=== PATIENT | female | born 1950 | race Caucasian/White ===

== ENCOUNTER 2018-06-21 13:48 | Observation (INO) | payer MEDICARE, OTHER ==
[~2018-06-21] VITALS: Ht 160 cm; Wt 96.6 kg
--- OUTSIDE RECORDS SUMMARY | 2018-06-21 13:50 | XMS REPORT | Clinical Summary ---
Author Author [facility] Address Unknown Phone Unavailable Care Team Providers Care Animal Care Worker Name Role Phone Swapna Alvarez MD PCP Allergies Not on File Medications Not on file Active Problems Not on file Encounters Care Team Description Date Type Specialty Tiffanie PhysicianMD Screening breast examination 08/06/2017 Hospital Radiology Encounter Tiffanie PhysicianMD Screening for osteoporosis; Menopause 08/06/2017 Hospital Radiology Encounter Swapna Alvarez MD Screening for osteoporosis (Primary Dx); Screening breast examination; Menopause 07/31/2017 Transcribe Access Orders after 06/20/2017 Social History Date Tobacco Use Types Packs/Day Years Used Never Assessed Sex Assigned at Date Recorded Not on file Industry Job Start Date Occupation Not on file Not on file Not on file Travel End Travel History Travel Start No recent travel history available. Last Filed Vital Signs Not on file Plan of Treatment Health Maintenance Due Date Last Done Comments COLON CANCER SCREENING 1998 SHINGRIX VACCINE (1 of 2) 1998 ZOSTER VACCINE 2008 PNEUMOCOCCAL 2013 POLYSACCHARIDE VACCINE AGE 65 AND OVER PNEUMOCOCCAL-13 2013 INFLUENZA VACCINE 03/04/2018 BREAST CANCER SCREENING 08/06/2019 08/06/2017, 05/22/2015 Procedures Comments Procedure Name Priority Date/Time Associated Diagnosis BONE DENSITY Routine 08/06/2017 Screening for 11:35 AM [employer] osteoporosis Menopause MAMMO BREAST SCREEN Routine 08/06/2017 Screening breast TOMOSYNTHESIS BILATERAL 11:20 AM [employer] examination after 06/20/2017 Results * Bone Density (08/06/2017 11:35 AM [employer]) Narrative Performed At EXAMINATION:BONE DENSITY [facility] CLINICAL HISTORY:Z13.820 Encounter for screening for osteoporosis, Z78.0 Asymptomatic menopausal state, OSTEOPOROSIS SCREENINGPOSTMENOPAUSAL.Osteoporosis screening. COMPARISON:05/22/2015 The results of this study expressed as bone mineral density (BMD) were as follows: AP spine (L1- L4) BMD: 1.299g/cm2 T-Score: 1.0 Percent Change: -6.0 Dual Femur (Total Mean): BMD: 0.940g/cm2 T-Score: -0.5 Percent Change: -7.5 Impression: Normal bone mineral density. [facility]-[id number] A copy of this scans including a report detailing these results will follow. Note: The world health organization (WHO) has classified the patient's T-score as follows: At or above (-1) as normal Between (-1) to (-2.5) as low (osteopenia) Below (-2.5) as abnormally low (osteoporosis, increased fracture risk) Dual femur FRAX: Risk factors: None. 10 year probability of fracture: 1.Major osteoporotic: 8.1 % 2.Hip: 0.8 % 3.Based on dual femur leftneck BMD Procedure Note [facility], Radiology Results Incoming - 08/11/2017 11:03 AM [employer] EXAMINATION: BONE DENSITY CLINICAL HISTORY: Z13.820 Encounter for screening for osteoporosis, Z78.0 Asymptomatic menopausal state, OSTEOPOROSIS SCREENING POSTMENOPAUSAL. Osteoporosis screening. COMPARISON: 05/22/2015 The results of this study expressed as bone mineral density (BMD) were as follows: AP spine (L1- L4) BMD: 1.299 g/cm2 T-Score: 1.0 Percent Change: -6.0 Dual Femur (Total Mean): BMD: 0.940 g/cm2 T-Score: -0.5 Percent Change: -7.5 Impression: Normal bone mineral density. [facility]-[id number] A copy of this scans including a report detailing these results will follow. Note: The world health organization (WHO) has classified the patient's T-score as follows: At or above (-1) as normal Between (-1) to (-2.5) as low (osteopenia) Below (-2.5) as abnormally low (osteoporosis, increased fracture risk) Dual femur FRAX: Risk factors: None. 10 year probability of fracture: 1. Major osteoporotic: 8.1 % 2. Hip: 0.8 % 3. Based on dual femur left neck BMD Performing Organization Address [facility]ode Phone Number [facility] [address] [place] [address] * Mammo Breast Screen Tomosynthesis Bilateral (08/06/2017 11:20 AM [employer]) Narrative Performed At PROCEDURE: MAMMO BREAST SCREEN TOMOSYNTHESIS BILATERAL [place]AK[place]ER Computer-assisted detection was utilized inthe interpretation of this exam. COMPARISON: 05/22/2015. TECHNIQUE: Bilateral digital screening mammogram was performed and interpreted using computer-assisted detection. HISTORY: Asymptomatic routine screening. History of left surgical excisional biopsy. Family History: Mother and sister with breast cancer history. FINDINGS: BreastComposition: There are scattered areas of fibroglandular density ( category B). A scar marker is placed over the left upper outer breast. A small circumscribed round masses present in the left outer breast at anterior depth with associated benign-appearing calcification, stable and unchanged since prior mammograms. There are occasional scattered calcifications. No suspicious mass , architectural distortion or suspicious microcalcifications are present. There has been no significant interval change since prior mammograms. IMPRESSION: No mammographic evidence of malignancy. Birads Category 2. Benign. RECOMMENDATIONS:If the clinical breast examination is unchanged and normal , annual screening mammography is recommended per ACS and ACR guidelines. PATIENT INFORMATION HAS BEEN ENTERED INTO A REMINDER SYSTEM WITH TARGET DUE DATE FOR THE NEXT MAMMOGRAM. NOTE: This facility is a designated ACR [facility] ( [facility]) , meeting standards of accreditation in all modalities of breast imaging. This facility is accredited by The [place] [employer] for Mammography. A negative x-ray report should not delay biopsy if a dominant or clinically suspicious mass is present. Not all cancers are identified by x-ray. [id number] Performing Organization Address City/[facility]/Zipcode Phone Number [facility] [address] [place] [address] after 06/20/2017 Insurance Payer Benefit Subscriber ID Type Phone Address Plan / Group MEDICARE MEDICARE xxxxxxxxxx Medicare [place] PART A AND B [employer] xxxxxx-xx Commercial [place] Advance Directives Patient has advance care planning documents on file. For more information, zachary echeverria contact: Дмитрий [address]ady[address] [place] [address]
--- OUTSIDE RECORDS SUMMARY | 2018-06-21 13:51 | XMS REPORT | Summary of Care ---
Author Author [facility] Organization [facility] Address Unknown Phone Unavailable Encounter HQ Malcolm_mikki(FIN) [id number] Date(s): 11/25/17 - 11/25/17 [facility] [address], [address] [place] [phone] Discharge Disposition: Home or Self Care Attending Physician: Chai Gómez MD Referring Physician: Swapna Alvarez MD Vital Signs Most recent to 1 oldest [Reference Range]: Height 160.02 cm (11/25/17 10:36 AM) Temperature Oral 97.6 DegF [96.4-99.1 DegF] (11/25/17 10:36 AM) Blood Pressure 143/82 mmHg [90-140/60-90 mmHg] *HI* (11/25/17 10:36 AM) Peripheral Pulse 59 bpm Rate [60-100 bpm] *LOW* (11/25/17 10:36 AM) Weight 97.33 kg (11/25/17 10:36 AM) Body Mass Index 38.01 m2 (11/25/17 10:36 AM) Problem List Condition Effective Dates Status Health Status Informant GERD Resolved (gastroesophageal reflux disease)(Confirmed) Murmur(Confirmed) Resolved Morbid Active obesity(Confirmed) Cervicalgia(Confirme Resolved d) Allergies, Adverse Reactions, Alerts Substance Reaction Severity Status NKDA Active Medications gabapentin 100 mg oral capsule 100 mg=1 cap, PO, TID, # 90 cap, 2 Refill(s), Pharmacy: [id number] Start Date: 11/25/17 Status: Ordered Results No data available for this section Immunizations No data available for this section Procedures Procedure Date Related Diagnosis Body Site Status Cholecystectomy Completed Knee replacement Completed Tonsillectomy Completed Social History Social History Type Response Smoking Status Never smoker; Exposure to Tobacco Smoke None; Cigarette Smoking Last 365 Days No; Reg Smoking Cessation Counseling No entered on: 11/25/17 Assessment and Plan No data available for this section
--- OUTSIDE RECORDS SUMMARY | 2018-06-21 13:51 | XMS REPORT | Summary of Care ---
Author Author [facility] Organization [facility] Address Unknown Phone Unavailable Encounter HQ Encntr_alias(FIN) [id number] Date(s): 01/06/18 - 01/07/18 [facility] [address], [address] [place] [address] [phone] Vital Signs No data available for this section Problem List Condition Effective Dates Status Health Status Informant Herniated disc, Active cervical(Confirmed) GERD Active (gastroesophageal reflux disease)(Confirmed) Murmur(Confirmed) Resolved Morbid Active obesity(Confirmed) Cervicalgia(Confirme Active d) Allergies, Adverse Reactions, Alerts Substance Reaction Severity Status NKDA Active Medications No data available for this section Results No data available for this section Immunizations No data available for this section Procedures Procedure Date Related Diagnosis Body Site Status Cholecystectomy Completed Knee replacement Completed Operation Completed Tonsillectomy Completed Social History Social History Type Response Smoking Status Never smoker; Exposure to Tobacco Smoke None; Cigarette Smoking Last 365 Days No; Reg Smoking Cessation Counseling No entered on: 01/08/18 Assessment and Plan No data available for this section
--- OUTSIDE RECORDS SUMMARY | 2018-06-21 13:51 | XMS REPORT | Summary of Care ---
Author Author [facility] Organization [facility] Address Unknown Phone Unavailable Encounter HQ Encntr_alias(FIN) [id number] Date(s): 01/05/18 - 01/06/18 [facility] [address], [address] [place] [phone] Vital Signs No data available for this [...]
--- OUTSIDE RECORDS SUMMARY | 2018-06-21 13:51 | XMS REPORT | Summary of Care ---
Author Author [facility] Organization [facility] Address Unknown Phone Unavailable Encounter HQ Encntr_alimarianela(FIN) [id number] Date(s): 12/01/17 - 12/01/17 [facility] [address], [address] [place] [phone] Discharge Disposition: Home or Self Care Attending Physician: Marilee Vieira MD Referring Physician: Swapna Alvarez MD Vital Signs No data available for this section Problem List Condition Effective Dates Status Health Status Informant GERD Resolved (gastroesophageal reflux disease)(Confirmed) Murmur(Confirmed) Resolved Morbid Active obesity(Confirmed) Cervicalgia(Confirme Resolved d) Allergies, Adverse Reactions, Alerts Substance Reaction Severity Status NKDA Active Medications No Known Medications Results No data available for this section Immunizations No data available for this section Procedures Procedure Date Related Diagnosis Body Site Status Cholecystectomy Completed Knee replacement Completed Operation Completed Tonsillectomy Completed Social History Social History Type Response Smoking Status Never smoker; Exposure to Tobacco Smoke None; Cigarette Smoking Last 365 Days No; Reg Smoking Cessation Counseling No entered on: 12/09/17 Assessment and Plan No data available for this section
--- OUTSIDE RECORDS SUMMARY | 2018-06-21 13:51 | XMS REPORT | Summary of Care ---
Author Author [facility] Organization [facility] Address Unknown Phone Unavailable Encounter HQ Encntr_alias(FIN) [id number] Date(s): 01/15/18 - 01/16/18 [facility] [address], [address] [place] [phone] Vital Signs No data available for this [...]
--- OUTSIDE RECORDS SUMMARY | 2018-06-21 13:51 | XMS REPORT | Summary of Care ---
Author Author [facility] Organization [facility] Address Unknown Phone Unavailable Encounter HQ Encntr_alimarianela(FIN) [id number] Date(s): 12/01/17 - 12/01/17 [facility] [address], [address] [phone] Discharge Disposition: Home or Self Care Attending [...]
--- OUTSIDE RECORDS SUMMARY | 2018-06-21 13:51 | XMS REPORT | Summary of Care ---
Author Author [facility] Organization [facility] [place] Address Unknown Phone Unavailable Encounter HQ Encntr_alias(FIN) [id number] Date(s): 06/23/17 - 06/23/17 [facility] [place] [address] [place] [address]- [phone] Discharge Disposition: Home or Self Care Attending Physician: Swapna Alvarez MD Vital Signs No data available for this section Problem List No data available for this section Allergies, Adverse Reactions, Alerts No data available for this section Medications No data available for this section Results No data available for this section Immunizations No data available for this section Procedures No data available for this section Social History No data available for this section Assessment and Plan No data available for this section
--- OUTSIDE RECORDS SUMMARY | 2018-06-21 13:51 | XMS REPORT | Summary of Care ---
Author Author [facility] Address Unknown Phone Unavailable Encounter HQ Encntr_alimarianela(FIN) [id number] Date(s): 07/02/17 - 07/31/17 [facility] Discharge Disposition: Home or Self Care Attending Physician: Swapna Alvarez MD Vital Signs No data available for this section Problem List Condition Effective Dates Status Health Status Informant GERD Resolved (gastroesophageal reflux disease)(Confirmed) Murmur(Confirmed) Resolved Cervicalgia(Confirme Resolved d) Allergies, Adverse Reactions, Alerts Substance Reaction Severity Status NKDA Active Medications No data available for this section Results No data available for this section Immunizations No data available for this section Procedures No data available for this section Social History Social History Type Response Smoking Status Never smoker; Exposure to Tobacco Smoke None; Cigarette Smoking Last 365 Days No; Reg Smoking Cessation Counseling No Assessment and Plan No data available for this section
--- OUTSIDE RECORDS SUMMARY | 2018-06-21 13:51 | XMS REPORT | Summary of Care ---
Author Author [facility] Organization [facility] Address Unknown Phone Unavailable Encounter HQ Encntr_alimarianela(FIN) [id number] Date(s): 12/11/17 - 12/11/17 [facility] [address], [address] [phone] Discharge Disposition: Home or Self Care Attending [...]
--- OUTSIDE RECORDS SUMMARY | 2018-06-21 13:51 | XMS REPORT | Summary of Care ---
Author Author [facility] [place] Organization [facility] [place] Address Unknown Phone Unavailable Encounter HQ Rodyr_mikki(FIN) [id number] Date(s): 09/29/17 - 09/29/17 [facility] [place] [address] [place] [address] [phone] Encounter Diagnosis Cervicalgia (Final) - 10/02/17 Spinal stenosis, cervical region (Final) - Fall (on)(from) sidewalk curb, initial encounter (Final) - Discharge Disposition: Home or Self Care Attending [...] Reg Smoking Cessation Counseling No entered on: 12/30/17 Assessment and Plan No data available for this section
--- OUTSIDE RECORDS SUMMARY | 2018-06-21 13:51 | XMS REPORT | Summary of Care ---
Author Author [facility] Organization [facility] Address Unknown Phone Unavailable Encounter DHEERAJ Shell(SIMI) [id number] Date(s): 07/23/17 - 07/23/17 [facility] [address] [place] [address]- Discharge Disposition: Home or Self Care Attending Physician: Alex Salinas MD Referring Physician: Alex Salinas MD Vital Signs 1 2 3 Most recent to oldest [Reference Range]: 162.56 cm (07/22/17 12:02 PM) Height 138/72 mmHg (07/23/17 1:45 PM) 138/76 mmHg (07/23/17 1:30 PM) 143/74 mmHg *HI* (07/23/17 1:16 PM) Blood Pressure [90-140/60-90 mmHg] 20 BRMIN (07/23/17 1:45 PM) 17 BRMIN (07/23/17 1:30 PM) 17 BRMIN (07/23/17 1:16 PM) Respiratory Rate [14-20 BRMIN] 96.818 kg (07/22/17 12:02 PM) Weight 36.64 m2 (07/22/17 12:02 PM) Body Mass Index Problem List Condition Effective Dates Status Health Status Informant GERD Resolved (gastroesophageal reflux disease)(Confirmed) Murmur(Confirmed) Resolved Cervicalgia(Confirme Resolved d) Allergies, Adverse Reactions, Alerts Substance Reaction Severity Status NKDA Active Medications NexIUM PO, Daily, 0 Refill(s) Start Date: 07/22/17 Status: Ordered Sodium Chloride 0.9% IV 1000 mL 1,000 mL, Rate: 25 ml/hr, Infuse over: 40 hr, Route: IV, Dosing Weight 96.818 kg , Total Volume: 1,000, Start date: 07/23/17 11:32:00 LAND EXAMINER, Duration: 30 day, Stop date: 08/22/17 11:31:00 LAND EXAMINER, 2.12, m2 Start Date: 07/23/17 Stop Date: 07/23/17 Status: Discontinued VESIcare 5 mg oral tablet 5 mg=1 tab, PO, Daily, 0 Refill(s) Start Date: 07/22/17 Status: Ordered Results No data available for [...]
--- OUTSIDE RECORDS SUMMARY | 2018-06-21 13:51 | XMS REPORT | Summary of Care ---
Author Author [facility] Organization [facility] Address Unknown Phone Unavailable Encounter HQ Encntr_alias(FIN) [id number] Date(s): 12/08/17 - 12/09/17 [facility] [address] [facility], [address] [phone] Vital Signs No data available for this [...]
--- OUTSIDE RECORDS SUMMARY | 2018-06-21 13:51 | XMS REPORT | Continuity of Care Document ---
Author Author [facility] Address Unknown Phone Unavailable Problems Problem Status Onset Date Classification Date Reported Comments Source UNK Active 01/02/2018 [facility] Cervicalgia 10/03/2017 01/05/2018 [facility] CERVICALGIA Active 06/24/2017 [facility] M54.2 - CERVICALGIA Active 06/20/2017 [facility] GERD (<span ID="[id number]">Confirmed</span>) Active Problem 02/12/2018 [facility] Murmur Resolved Problem 02/12/2018 [facility] Morbid obesity Active Problem 02/12/2018 [facility], [facility] Cervicalgia Active Problem 02/12/2018 [facility] GERD (<span ID="[id number]">Confirmed</span>) Active Problem 01/25/2018 [facility] Murmur Resolved Problem 01/25/2018 [facility] Cervicalgia Active Problem 01/25/2018 [facility] Herniated disc, cervical Active [facility] Spinal stenosis, cervical region 01/05/2018 [facility] Fall (from) sidewalk curb, initial encounter 01/05/2018 [facility] GERD (<span ID="[id number]">Confirmed</span>) Resolved Problem 01/05/2018 [facility], [facility] Murmur Resolved Problem 01/05/2018 [facility], [facility] Cervicalgia Resolved Problem 01/05/2018 [facility], [facility] GASTRO-ESOPHAGEAL REFLUX DISEASE WITHOUT Active [facility] CERVICALGIA Active [facility] MUSCLE WEAKNESS (GENERALIZED) Active [facility] STIFFNESS OF UNSPECIFIED JOINT, NOT ELSE Active [facility] RADICULOPATHY, CERVICAL REGION Active [facility] SPONDYLS W/O MYELPATH OR RADICULOPATHY, Active [facility] Medications Medication Details Route Status Patient Instructions Ordering Provider Order Date Source gabapentin 100 MG Oral Capsule 100 mg=1 cap, PO, TID, # 90 cap, 2 Refill(s), Pharmacy: [place] [id number] Active 02/09/2018 [facility] Diclofenac Sodium 0.01 MG/MG Topical Gel [Voltaren] 4 gm=1 appl, TOP, BID, PRN Apply to affected area, # 100 gm, 1 Refill(s), Pharmacy: [place] [id number] Active 02/09/2018 [facility] meloxicam 7.5 mg oral tablet 7.5 mg=1 tab, PO, Daily, # 30 tab, 2 Refill(s), Pharmacy: [place] [id number] Active 02/09/2018 [facility] Calcium Chloride 0.0014 MEQ/ML / Potassium Chloride 0.004 MEQ/ML / Sodium Chloride 0.103 MEQ/ML / Sodium Lactate 0.028 MEQ/ML Injectable Solution 1,000 mL, Rate: 25 ml/hr, Infuse over: 40 hr, Route: IV, Dosing Weight 95.455 kg, Total Volume: 1,000, Start date: 01/22/18 13:37:00 CDT, Duration: 30 day, Stop date: 02/21/18 13:36:00 CDT, 2.08, m2 Inactive 01/22/2018 [facility] gabapentin 100 MG Oral Capsule 100 mg=1 cap, PO, TID, # 90 cap, 2 Refill(s), Pharmacy: [place] [id number] Active 11/25/2017 [facility] Sodium Chloride 0.9% IV 1000 mL 1,000 mL, Rate: 25 ml/hr, Infuse over: 40 hr, Route: IV, Dosing Weight 96.818 kg, Total Volume: 1,000, Start date: 07/23/17 11:32:00 FLOOR SURFACER, Duration: 30 day, Stop date: 08/22/17 11:31:00 FLOOR SURFACER, 2.12, m2 Inactive 07/23/2017 [facility] solifenacin succinate 5 MG Oral Tablet [VESICARE] 5 mg=1 tab, PO, Daily, 0 Refill(s) Active 07/22/2017 [facility] Nexium PO, Daily, 0 Refill(s) Active 07/22/2017 [facility] Allergies, Adverse Reactions, Alerts Substance Category Reaction Severity Reaction type Status Date Reported Comments Source Immunizations Immunization Date Given Site Status Last Updated Comments Source Results Order Name Results Value Reference Range Date Interpretation Comments Source Hand 3 views Bilateral DX Hand 3 views Bilateral DX EXAM: XR BILATERAL HAND 2 VIEWS DATE: 03/06/2018 10:14 AM CDT INDICATION: bilateral hand pain COMPARISON: Right hand radiographs 03/11/2008 at 1459 hours TECHNIQUE: PA and lateral radiographs of the bilateral hands. FINDINGS: Left hand: There is an impaction of the distal radial ulnar joint. Mild radiocarpal narrowing is also noted. Degenerative changes of the 1st CMC joint is seen. There is also mild narrowing of the 1st MCP and interphalangeal joints of the 2nd through 5th finger. No acute fracture or malalignment is identified. Right hand: An impaction of the distal radial ulnar joint is seen. There is an irregularity of the radiocarpal joints as well as the lunate. Degenerative changes are seen at the triscaphe joint. Mild joint space narrowing is noted at the 1st MCP. No acute fracture or malalignment is identified. IMPRESSION: Osteoarthrosis with no signs of inflammatory arthropathy. Findings likely represent osteoarthritis. 03/06/2018 - - This report was dictated by a Validation Specialist/Fellow. I have personally reviewed the images as well as the Resident's interpretation and agree with the findings. Read by: Lisa Krueger MD Resident: Lisa Krueger MD Dictated Date/time: 03/06/18 10:45 Electronically Signed by: Wilbert Cedillo MD 03/06/18 11:38 FINAL REPORT [facility] cervical wo contrast CT Spine cervical wo contrast CT Spine cervical wo contrast CT 12/02/2017 10:40 AM CDT CLINICAL INDICATION: - M47.812 Spondylosis without myelopathy or radiculopathy, cervical region; TECHNIQUE: Contiguous axial CT images of the cervical spine. Intravenous contrast: None. DLP 393 mGy-cm. This exam was performed according to our department dose optimization protocol, which includes automated exposure control, adjustment of the mA and/or kV according to patient size and/or use of iterative reconstruction technique. COMPARISON: 09/29/2017 MRI FINDINGS: Vertebrae: The lateral cervical spine alignment is intact. Anterior osteophytes with calcification of the annuli are seen at the C4-C5, C5- C6, C6-C7 levels. C6 level 2.5 mm ossification of the posterior longitudinal ligament is seen with mild central canal stenosis. C6-C7 moderate disc narrowing is present with approximately 2.8 mm disc bulge with mild to moderate central canal stenosis. Severe left and mild right foraminal stenosis due to foraminal osteophytes. Other: None. IMPRESSION: 1. C6 level OPLL with mild central canal stenosis. 2. C6-C7 moderate degenerative changes with [id number] central canal stenosis and severe left foraminal stenosis. 12/02/2017 - - Read by: Cody House MD Dictated Date/time: 12/02/17 17:43 Electronically Signed by: Cody House MD 12/02/17 17:54 FINAL REPORT [facility] Brain wo contrast CT Brain wo contrast CT Brain wo contrast CT , 09/29/2017 11:08 AM FLOOR SURFACER. CLINICAL INDICATION: 67 years Female - fall, head injury x 1 month ago Comparison: None TECHNIQUE: Noncontrast images of the brain are obtained from the skull base to the vertex. Axial, sagittal, and coronal images are interpreted. DLP: 1163 mGy-cm -- AEC, mA/kV adjustment by patient size, and/or iterative reconstruction technique were used, per departmental dose-optimization program. FINDINGS: Streak artifact may limit evaluation the posterior fossa and skull base. BRAIN PARENCHYMA: The brain volume is age appropriate. The lux-white distinction is maintained. There is no evidence of cerebral edema, mass effect, or acute hemorrhage. CEREBELLOPONTINE REGIONS AND SKULL BASE: No evidence of fracture or significant scalp hematoma. The cerebellopontine angles appear unremarkable. No skull base abnormality is seen. VENTRICLES/SULCI/CISTERNS: The ventricles are normal in size and configuration. The basal cisterns are patent. ORBITS, VISUALIZED PARANASAL SINUSES AND MASTOIDS: Paranasal sinuses are clear. The mastoid air cells are clear. No orbital pathology is seen. IMPRESSION: No CT evidence of acute intracranial abnormality identified. 09/29/2017 - - Read by: Scar Diaz MD Dictated Date/time: 09/29/17 11:31 Electronically Signed by: Scar Diaz MD 09/29/17 11:33 FINAL REPORT [facility] Spine cervical wo contrast MRI Spine cervical wo contrast MRI Spine cervical wo contrast MRI 09/29/2017 10:25 AM FLOOR SURFACER CLINICAL: M54.2 Cervicalgia - M54.2 Cervicalgia TECHNIQUE: Multiplanar multisequence imaging of the cervical spine was performed without administration of intravenous gadolinium. COMPARISON: 06/23/2017 radiograph exam. FINDINGS: Multilevel disc desiccation is seen. C1-C2: No spinal stenosis or neural foraminal stenosis. C2-C3: There is preservation of the disc height, with no bulging, herniation, spinal stenosis, or neural foraminal stenosis. C3-C4: No central canal or foraminal stenosis. C4-C5: There is preservation of the disc height, with no bulging, herniation, spinal stenosis, or neural foraminal stenosis. C5-C6: Approximately 3 mm thick left ligamentum flavum redundancy. 1.5 mm disc bulge is present with mild central canal stenosis and mild cord indentation. Mild bilateral foraminal stenosis due to right foraminal osteophytes and mild left facet arthrosis. C6-C7: Significant disc narrowing is present. Approximately 3.5 mm posterior disc osteophyte complex with mild central canal stenosis and cord indentation. Severe left foraminal stenosis and moderate right foraminal stenosis due to foraminal osteophytes and uncovertebral joint arthrosis. C7-T1: There is preservation of the disc height, with no bulging, herniation, spinal stenosis, or neural foraminal stenosis. The cervical cord signal is unremarkable without MRI evidence of myelomalacia. IMPRESSION: 1. C5-C6 and C6-C7 mild central canal stenosis and cord indentation as above. Normal cervical cord signal is maintained. 2. C5-C6 mild bilateral foraminal stenosis. C6-C7 severe left foraminal stenosis and moderate right foraminal stenosis. 09/29/2017 - - Read by: Cody House MD Dictated Date/time: 09/29/17 12:10 Electronically Signed by: Cody House MD 09/29/17 13:21 FINAL REPORT [facility] [place] Spine cervical 2 or 3 view DX Spine cervical 2 or 3 view DX Exam: Cervical spine x-ray, 3 views Reason for Exam: - cervicalgia Comparison Exam: None Discussion: On lateral view, the cervical spine is seen from the C1 vertebral body level down through the C7/T1 junction. Vertebral body heights are maintained. No spondylolisthesis. Anterior bridging osteophyte formation seen within the mid and lower cervical spine. No suspicious osteoblastic or osteolytic lesions. Prevertebral soft tissue is within normal limits. Lateral masses of C1 and dens of C2 appear intact. Please note that a cervical spine x-ray cannot rule out ligamentous injuries or spinal cord abnormalities. Visualized portions of the lung apices are unremarkable. Impression: 1. Vertebral body heights are maintained. No spondylolisthesis. Anterior bridging osteophyte formation seen within the mid and lower cervical spine. 06/23/2017 - - Read by: Juan Jose Madrid MD Dictated Date/time: 06/23/17 15:58 Electronically Signed by: Juan Jose Madrid MD 06/23/17 16:01 FINAL REPORT [facility] Vital Signs Vital Sign Value Date Comments Source Systolic (mm Hg) 140 01/22/2018 [facility] Diastolic (mm Hg) 67 01/22/2018 [facility] Respitory Rate 17 01/22/2018 [facility] Systolic (mm Hg) 139 01/22/2018 [facility] Diastolic (mm Hg) 69 01/22/2018 [facility] Respitory Rate 22 01/22/2018 [facility] Systolic (mm Hg) 140 01/22/2018 [facility] Diastolic (mm Hg) 91 01/22/2018 [facility] Respitory Rate 16 01/22/2018 [facility] Weight 95.455 01/21/2018 [facility] BMI Calculated 38.49 01/21/2018 [facility] Height 157.48 cm 01/21/2018 [facility] Systolic (mm Hg) 127 12/30/2017 [facility] Diastolic (mm Hg) 79 12/30/2017 [facility] Heart Rate 66 12/30/2017 [facility] Weight 97.443 12/30/2017 [facility] BMI Calculated 38.05 12/30/2017 [facility] Height 160.02 cm 12/30/2017 [facility] Systolic (mm Hg) 143 11/25/2017 [facility] Diastolic (mm Hg) 82 11/25/2017 [facility] Temperature Oral (F) 97.6 F 11/25/2017 [facility] Heart Rate 59 11/25/2017 [facility] Height 160.02 cm 11/25/2017 [facility] BMI Calculated 38.01 11/25/2017 [facility] Weight 97.33 11/25/2017 [facility] Systolic (mm Hg) 138 07/23/2017 [facility] Diastolic (mm Hg) 72 07/23/2017 [facility] Respitory Rate 20 07/23/2017 [facility] Systolic (mm Hg) 138 07/23/2017 [facility] Diastolic (mm Hg) 76 07/23/2017 [facility] Respitory Rate 17 07/23/2017 [facility] Systolic (mm Hg) 143 07/23/2017 [facility] Diastolic (mm Hg) 74 07/23/2017 [facility] Respitory Rate 17 07/23/2017 [facility] BMI Calculated 36.64 07/22/2017 [facility] Weight 96.818 07/22/2017 [facility] Height 162.56 cm 07/22/2017 [facility] Encounters Location Location Details Encounter Type Encounter Number Reason For Visit Attending Provider ADM Date DC Date Status Source [facility] [id number] Swapna Sattar 06/23/2017 06/24/2017 [facility] OP Therapy Patients [id number] Swapna Sattar 07/02/2017 08/01/2017 [facility] Bedded Outpatient [id number] Alex Salinas 07/23/2017 07/23/2017 [facility] Outpatient Imaging - [place] Outpt Diag Services [id number] Swapna Sattar 09/29/2017 09/30/2017 [facility] [id number] Carlos Narvaez 10/28/2017 10/28/2017 [facility] Neurosurgery [facility] Phone Message [id number] 10/30/2017 11/01/2017 [facility] Outpatient [id number] CHAI HATHAWAYH 11/25/2017 Active [facility] Neurosurgery [facility] Outpatient [id number] Chai Gómez 11/25/2017 11/26/2017 [facility] [id number] MARILEE VIEIRA 12/01/2017 [facility] Outpatient [id number] Swapna Sattar 12/01/2017 12/02/2017 [facility] Outpatient Imaging - [facility] Out[facility] Diag Services [id number] Chai Hathawayh 12/02/2017 12/03/2017 [facility] Phone Message [id number] 12/08/2017 12/10/2017 [facility] Out[facility] [id number] MARILEE VIEIRA 12/11/2017 [facility] [id number] Marilee Vieira 12/11/2017 12/12/2017 [facility] Phone Message [id number] 12/22/2017 12/24/2017 [facility] Outpatient [id number] [facility] 12[facility]30/2017 [facility] [id number] [facility] 12/30/2017 12/31/2017 [facility] Phone Message [id number] 01/05/2018 01/07/2018 [facility] Phone Message [id number] 01/06/2018 01/08/2018 [facility] Outpatient [id number] [facility] 01/14/2018 [facility] Phone Message [id number] 01/15/2018 [facility]17/[facility] [id number] Marilee Vieira 01/22/2018 01/22/2018 [facility] Outpatient [id number] MARILEE VIEIRA 01/22/2018 [facility] Phone Message [id number] 01/23/2018 01/25/2018 [facility] Outpatient [id number] MARILEE VIEIRA 02/09/2018 Active [facility] Outpatient [id number] Marilee Vieira 02/09/2018 02/10/2018 [facility] Outpatient [id number] MARILEE VIEIRA 05/11/2018 Active [facility] Procedures Procedure Code Date Perfomer Comments Source Cholecystectomy 05444967 [facility] Knee replacement 43811707 [facility] Operation 870869277 [facility] Tonsillectomy 291278841 [facility] Cholecystectomy 90536627 [facility] Knee replacement 13553689 [facility] Operation [id number] [facility] Tonsillectomy [id number] [facility] Cholecystectomy 44032678 [facility] Knee replacement 21665430 [facility] Operation [id number] [facility] Tonsillectomy [id number] [facility]
--- OUTSIDE RECORDS SUMMARY | 2018-06-21 13:51 | XMS REPORT | Summary of Care ---
Author Author [facility] Organization [facility] Address Unknown Phone Unavailable Encounter HQ Encntr_mikki(FIN) [id number] Date(s): 12/30/17 - 12/30/17 [facility] Neuro[facility] [address] [facility], [address] [phone] Discharge Disposition: Home or Self Care Attending Physician: Chai Gómez MD Referring Physician: Swapna Alvarez MD Vital Signs Most recent to 1 oldest [Reference Range]: Height 160.02 cm (12/30/17 11:34 AM) Blood Pressure 127/79 mmHg [90-140/60-90 mmHg] (12/30/17 11:34 AM) Peripheral Pulse 66 bpm Rate [60-100 bpm] (12/30/17 11:34 AM) Weight 97.443 kg (12/30/17 11:34 AM) Body Mass Index 38.05 m2 (12/30/17 11:34 AM) Problem List Condition Effective Dates Status [...]
--- OUTSIDE RECORDS SUMMARY | 2018-06-21 13:51 | XMS REPORT | Summary of Care ---
Author Author [facility] Organization [facility] Address Unknown Phone Unavailable Encounter HQ Encntr_alias(FIN) [id number] Date(s): 12/22/17 - 12/23/17 [facility] Neurosurgery [facility] [address] [facility], [address] [phone] Vital Signs No data available for this [...]
--- OUTSIDE RECORDS SUMMARY | 2018-06-21 13:51 | XMS REPORT | Summary of Care ---
Author Author [facility] Organization [facility] [place] Address Unknown Phone Unavailable Encounter HQ Macrientr_mikki(FIN) [id number] Date(s): 12/02/17 - 12/02/17 [facility] [place] [address] [place], [place] [address] [phone] Discharge Disposition: Home or Self Care Attending Physician: Chai Gómez MD Vital Signs No data available for [...]
--- OUTSIDE RECORDS SUMMARY | 2018-06-21 13:51 | XMS REPORT | Summary of Care ---
Author Author [facility] Neurosurgery [facility] Organization [facility] Neurosurgery [facility] Address Unknown Phone Unavailable Encounter HQ Encntr_alimarianela(FIN) [id number] Date(s): 12/11/17 - 12/11/17 [facility] Neurosurgery [facility] [address] [facility], [address] [phone] Discharge Disposition: Home or Self Care Attending [...]
--- OUTSIDE RECORDS SUMMARY | 2018-06-21 13:52 | XMS REPORT | Summary of Care ---
Author Author [facility] Organization [facility] Address Unknown Phone Unavailable Encounter HQ Encntr_alias(FIN) [id number] Date(s): 01/23/18 - 01/24/18 [facility] [address] [facility], [address] [phone] Vital Signs No data available for this [...] Completed Social History Social History Type Response Substance Abuse Use: None. Alcohol Never Smoking Status Never smoker; Exposure to Tobacco Smoke None; Cigarette Smoking Last 365 Days No; Reg Smoking Cessation Counseling No entered on: 01/22/18 Assessment and Plan No data available for this section
--- OUTSIDE RECORDS SUMMARY | 2018-06-21 13:52 | XMS REPORT | Summary of Care ---
Author Author [facility] Organization [facility] Address Unknown Phone Unavailable Encounter HQ Sumaya(FIN) [id number] Date(s): 02/09/18 - 02/09/18 [facility] Neurosurgery [facility] [address] [facility], [address] [place], [place] [address] [phone] Discharge Disposition: Home or Self Care Attending [...] TID, # 90 cap, 2 Refill(s), Pharmacy: [facility] Start Date: 02/09/18 Status: Ordered meloxicam 7.5 mg oral tablet 7.5 mg=1 tab, PO, Daily, # 30 tab, 2 Refill(s), Pharmacy: [facility] Start Date: 02/09/18 Status: Ordered Voltaren Topical 1% topical gel 4 gm=1 appl, TOP, BID, PRN Apply to affected area, # 100 gm, 1 Refill(s), Pharma cy: [facility] [place] [id number] Start Date: 02/09/18 Status: Ordered Results No data available for [...]
--- OUTSIDE RECORDS SUMMARY | 2018-06-21 13:52 | XMS REPORT | Summary of Care ---
Author Author [facility] Neurosurgery [facility] Organization [facility] Neuro[facility] Address Unknown Phone Unavailable Encounter HQ Encntr_alias(FIN) [id number] Date(s): 10/30/17 - 10/31/17 [facility] Neurosurgery [facility] [address] [facility], [address] [phone] Vital Signs No data available for this [...]
--- OUTSIDE RECORDS SUMMARY | 2018-06-21 13:52 | XMS REPORT | Summary of Care ---
Author Author [facility] Neurosurgery [facility] Organization [facility] Neurosurgery [facility] Address Unknown Phone Unavailable Encounter HQ Marcientr_mikki(FIN) [id number] Date(s): 10/28/17 - 10/28/17 [facility] Neurosurgery [facility] [address] [facility], [address] [phone] Attending Physician: Chai Gómez MD Referring Physician: Carlos Narvaez MD Vital Signs No data available for [...]
[2018-06-21] MEDS ORDERED: ASPIRIN 81 MG CHEW TAB PO NR (14:15)
[2018-06-21] MEDS ORDERED: FOLIC ACID1 MG PO (14:24)
[2018-06-21] MEDS ORDERED: VITAMIN D250000 UNIT PO (14:24)
[2018-06-21] MEDS ORDERED: PREDNISONE5 MG PO (14:24)
[2018-06-21] MEDS ORDERED: METHOTREXATE2.5 MG PO (14:24)
[2018-06-21 14:27] LABS: BASOPHILS % 0.3 % (0.0-1.0); EOSINOPHILS # (AUTO) 0.1 (0.0-0.4); HEMATOCRIT 35.3 % (34.2-44.1); HEMOGLOBIN 11.6 g/dL (12.0-16.0); LYMPHOCYTES # (AUTO) 0.7 (1.0-3.2); LYMPHOCYTES % 9.9 % (18.0-39.1); MEAN CORPUSCULAR HEMOGLOBIN 30.9 pg (28-32); MEAN CORPUSCULAR HGB CONC 32.9 g/dL (31-35); MEAN CORPUSCULAR VOLUME 93.9 fL (81-99); MONOCYTES # (AUTO) 0.3 (0.2-0.8); MONOCYTES % 4.6 % (4.4-11.3); NEUTROPHILS # (AUTO) 5.8 (2.1-6.9); NEUTROPHILS % 82.8 % (38.7-80.0); PLATELET COUNT 179 x10e3/uL (140-360); RED BLOOD COUNT 3.76 x10e6/uL (3.6-5.1); RED CELL DISTRIBUTION WIDTH 14.9 % (11.7-14.4)
[2018-06-21 14:47] LABS: INR 0.94; PROTHROMBIN TIME 13.4 seconds (11.9-14.5)
[2018-06-21 14:48] LABS: PARTIAL THROMBOPLASTIN TIME 27.8 seconds (23.8-35.5)
--- NOTE | 2018-06-21 14:55 | Diagnostic Imaging Report ---
EXAMINATION: CHEST SINGLE (PORTABLE) COMPARISON: None INDICATION: Chest pain, now subsided DISCUSSION: Frontal view of the chest obtained at 1439 hours. HEART AND MEDIASTINUM: The cardiomediastinal silhouette is unremarkable. LINES: None. LUNGS: The lungs are well inflated and clear. No pneumonia or pulmonary edema. PLEURA: No pleural effusion or pneumothorax. BONES AND SOFT TISSUES: Mild degenerative changes of the shoulders.. The soft tissues are normal. IMPRESSION: No acute cardiopulmonary disease. Signed by: Dr. Dixon Gonzalez MD on 06/21/2018 2:52 PM
[2018-06-21 14:57] LABS: ALANINE AMINOTRANSFERASE 13 IU/L (0-55); ALBUMIN 3.7 g/dL (3.5-5.0); ALBUMIN/GLOBULIN RATIO 1.1 (0.8-2.0); ALKALINE PHOSPHATASE 46 IU/L (40-150); ANION GAP 14.9 mmol/L (8-16); BLOOD UREA NITROGEN 23 mg/dL (7-26); BUN/CREATININE RATIO 22 (6-25); CALCIUM 8.3 mg/dL (8.4-10.2); CARBON DIOXIDE 24 mmol/L (22-29); CHLORIDE 108 mmol/L (98-107); CREATINE KINASE 37 IU/L (29-168); CREATININE, SERUM 1.04 mg/dL (0.57-1.11); EST GLOMERULAR FILTRATION RATE 52 ML/MIN (60-); GLUCOSE 95 mg/dL (74-118); MAGNESIUM 2.1 MG/DL (1.3-2.1); POTASSIUM 3.9 mmol/L (3.5-5.1); SODIUM 143 mmol/L (136-145)
[2018-06-21 15:12] LABS: BILIRUBIN,URINE NEGATIVE (NEGATIVE); KETONES,URINE TRACE (NEGATIVE); LEUKOCYTE ESTERASE ,URINE 1+ (NEGATIVE); NITRITE,URINE NEGATIVE (NEGATIVE); PROTEIN,URINE DIPSTICK NEGATIVE (NEGATIVE); URINE UROBILINOGEN 1 mg/dL (0.2 - 1)
[2018-06-21 15:19] LABS: BACTERIA,URINE MANY /HPF; CLARITY,URINE HAZY (CLEAR); COLOR,URINE YELLOW (YELLOW); EPITHELIAL CELLS,URINE MODERATE /LPF; MUCUS,URINE MODERATE (RARE)
[2018-06-21] MEDS ORDERED: PANTOPRAZOLE 40 MG 10ML VIAL IV NR (15:30)
[2018-06-21] MEDS ORDERED: ONDANSETRON HCL INJ 2 MG/ML VIAL IV PRN (15:30)
--- OUTSIDE RECORDS SUMMARY | 2018-06-21 15:47 | XMS REPORT | Clinical Summary ---
Author Author [facility] Organization [facility] Address Unknown Phone Unavailable Care Team Providers Care Director Of Enterprise Strategy Name Role Phone Swapna Alvarez MD PCP [...] DENSITY Routine 08/06/2017 Screening for 11:35 AM WATER MANAGER osteoporosis Menopause MAMMO BREAST SCREEN Routine 08/06/2017 Screening breast TOMOSYNTHESIS BILATERAL 11:20 AM WATER MANAGER examination after 06/20/2017 Results * Bone Density (08/06/2017 11:35 AM WATER MANAGER) Narrative Performed At EXAMINATION:BONE DENSITY [facility] CLINICAL HISTORY:Z13.820 Encounter for screening for osteoporosis, Z78.0 Asymptomatic menopausal state, OSTEOPOROSIS SCREENINGPOSTMENOPAUSAL.Osteoporosis screening. COMPARISON:05/22/2015 The results of this study expressed as bone mineral density (BMD) were as follows: AP spine (L1- L4) BMD: 1.299g/cm2 T-Score: 1.0 Percent Change: -6.0 Dual Femur (Total Mean): BMD: 0.940g/cm2 T-Score: -0.5 Percent Change: -7.5 Impression: Normal bone mineral density. [facility]-[id number] A copy of this scans including a [...] on dual femur leftneck BMD Procedure Note [facility], Radiology Results Incoming - 08/11/2017 11:03 AM WATER MANAGER EXAMINATION: BONE DENSITY CLINICAL HISTORY: Z13.820 Encounter [...] Change: -7.5 Impression: Normal bone mineral density. [facility]-[id number] A copy of this scans including a [...] femur left neck BMD Performing Organization Address [facility] Phone Number [facility] [address] [place] [address] * Mammo Breast Screen Tomosynthesis Bilateral (08/06/2017 11:20 AM WATER MANAGER) Narrative Performed At PROCEDURE: MAMMO BREAST SCREEN [...] imaging. This facility is accredited by [employer] for Mammography. A negative x-ray report should not delay biopsy if a dominant or clinically suspicious mass is present. Not all cancers are identified by x-ray. [id number] Performing Organization Address City/[facility]/Zipcode Phone Number [facility] [address] [place] [address] after 06/20/2017 Insurance Payer Benefit Subscriber ID Type Phone Address Plan / Group MEDICARE MEDICARE xxxxxxxxxx Medicare [place], [place] PART A AND B [employer] x[employer]x-xx Commercial [place] Advance Directives Patient has advance care planning documents on file. For more information, zachary echeverria contact: [address]митрий [address] [place] [address]
--- OUTSIDE RECORDS SUMMARY | 2018-06-21 15:48 | XMS REPORT ---
Author [facility] Address Unknown Phone Unavailable Care Team Providers Care Agricultural Research Director Name Role Phone Janet MURRIETA Unavailable Unavailable Problems This patient has no known problems. Allergies, Adverse Reactions, Alerts This patient has no known allergies or adverse reactions. Medications This patient has no known medications. Results Test Description Test Time Test Comments Text Results Atomic Results Result Comments CHEST SINGLE (PORTABLE) 2018-06-21 14:51:00 [place] [address] Patient Name: SOPHIA CAN MR #: [id number] : 1950 Age/Sex: 68/F Req #: [id number] Adm Physician: Ordered by: JODI MURRIETA MD Report #: [id number] Location: ER Room/Bed: Procedure: [id number] DX/CHEST SINGLE (PORTABLE) Exam Date: 06/21/18 Exam Time: 1432 REPORT STATUS: Signed EXAMINATION: CHEST SINGLE (PORTABLE) COMPAR JOSE MIGUEL: None INDICATION: Chest pain, now subsided DISCUSSION: Frontal view of the chest obtained at 1439 hours. HEART AND MEDIASTINUM: The cardiomediastinal silhouette is unremarkable. LINES: None. LUNGS: The lungs are well inflated and clear. No pneumonia or pulmonary edema. PLEURA: No pleural effusion or pneumothorax. BONES AND SOFT TISSUES: Mild degenerative changes of the shoulders.. The soft tissues are normal. IMPRESSION: No acute cardiopulmonary disease. Signed by: Dr. Zac Gonzalez MD on 06/21/2018 2:52 PM Dictated By: ZAC GONZALEZ MD 51 Transcribed By: DANYELL on 06/21/181451 COPY TO: JODI MURRIETA MD
[2018-06-21 17:14] VITALS: BP 179/76
[2018-06-21 17:16] VITALS: BP 179/76
[2018-06-21 17:21] VITALS: BP 179/76
[2018-06-21 19:47] VITALS: BP 139/63
[2018-06-21 19:52] VITALS: BP 139/63
[2018-06-22] VITALS (7 sets, daily range): BP systolic 126–159; BP diastolic 58–72
[2018-06-22 00:03] LABS: CREATINE KINASE 34 IU/L (29-168)
[2018-06-22 05:53] LABS: BASOPHILS % 0.6 % (0.0-1.0); EOSINOPHILS # (AUTO) 0.2 (0.0-0.4); EOSINOPHILS % 3.6 % (0.0-6.0); HEMATOCRIT 32.3 % (34.2-44.1); HEMOGLOBIN 10.7 g/dL (12.0-16.0); LYMPHOCYTES # (AUTO) 1.4 (1.0-3.2); MEAN CORPUSCULAR HGB CONC 33.1 g/dL (31-35); MEAN CORPUSCULAR VOLUME 93.6 fL (81-99); MONOCYTES # (AUTO) 0.4 (0.2-0.8); NEUTROPHILS # (AUTO) 3.1 (2.1-6.9); NEUTROPHILS % 61.6 % (38.7-80.0); PLATELET COUNT 173 x10e3/uL (140-360); RED BLOOD COUNT 3.45 x10e6/uL (3.6-5.1); RED CELL DISTRIBUTION WIDTH 14.6 % (11.7-14.4)
[2018-06-22 06:22] LABS: CREATINE KINASE 172 IU/L (29-168)
[2018-06-22 06:35] LABS: ANION GAP 14.5 mmol/L (8-16); BLOOD UREA NITROGEN 19 mg/dL (7-26); BUN/CREATININE RATIO 25 (6-25); CALCIUM 8.9 mg/dL (8.4-10.2); CARBON DIOXIDE 22 mmol/L (22-29); CHLORIDE 109 mmol/L (98-107); CHOL/HDL RATIO 2.7 (3.0-3.6); CHOLESTEROL 145 MD/DL (0-199); CREATININE, SERUM 0.75 mg/dL (0.57-1.11); EST GLOMERULAR FILTRATION RATE > 60 ML/MIN (60-); GLUCOSE 86 mg/dL (74-118); HDL CHOLESTEROL 53 MG/DL (40-60); LDL CHOLESTEROL 81 MG/DL (60-130); POTASSIUM 3.5 mmol/L (3.5-5.1); SODIUM 142 mmol/L (136-145); TRIGLYCERIDES 54 MG/DL (0-149)
[2018-06-22] MEDS ORDERED: HYDRALAZINE HCL 20 MG/ML VIAL IV PRN (07:00)
[2018-06-22] MEDS ORDERED: ACETAMINOPHEN 325 MG TAB PO PRN (07:00)
[2018-06-22] MEDS: CEFTRIAXONE SOD 1 GM VIAL IV SCH ×2 (08:50→18:20)
[2018-06-22] MEDS ORDERED: POTASSIUM CHLORIDE 20 MEQ TAB CR PO STA (08:51)
[2018-06-22] MEDS ORDERED: AMLODIPINE BESYLATE 10 MG TAB PO SCH (09:00)
[2018-06-22] MEDS ORDERED: ASPIRIN 81 MG ENTERIC COATED PO SCH (09:00)
[2018-06-22] MEDS ORDERED: PANTOPRAZOLE 40 MG 10ML VIAL IV SCH (09:00)
[2018-06-22] MEDS ORDERED: FOLIC ACID 1 MG TAB PO SCH (09:00)
[2018-06-22] MEDS ORDERED: PREDNISONE 5 MG TAB PO SCH (09:00)
[2018-06-22] MEDS ORDERED: POTASSIUM CHLORIDE 20 MEQ TAB CR PO ONE (09:44)
[2018-06-22] MEDS ORDERED: AMLODIPINE BESYLATE 10 MG TAB ONE (09:45)
--- NOTE | 2018-06-22 12:23 | Consultation ---
DATE OF CONSULTATION: June 21, 2018 CARDIOLOGY CONSULTATION REQUESTING PHYSICIAN: Dr. Quinn REASON FOR CONSULTATION: Chest pain. HPI: This is a pleasant, 68-year-old female that presented with chest pain. She stated yesterday she started having right-sided chest pain on a scale of 5 out of 10 that radiated to her neck and back. She said it felt like a sudden, sharp pain that then went away. She decided to come to the emergency room for evaluation. She denied any palpitations, any dizziness, any shortness of breath or diaphoresis. Troponin times 3 was negative, but CK was elevated. EKG showed normal sinus rhythm with no ST abnormalities. PAST MEDICAL HISTORY: Obesity, osteoarthritis, GERD. PAST SURGICAL HISTORY: Back surgery, cholecystectomy and knee surgery. FAMILY HISTORY: Positive for cancer. SOCIAL HISTORY: No smoking. No drinking. She lives at home with family. MEDICATIONS: See med list. ALLERGIES: SHE IS NOT ALLERGIC TO ANY MEDICATION. REVIEW OF SYSTEMS: Negative, except those mentioned above. PHYSICAL EXAMINATION VITAL SIGNS: Temperature 97, heart rate 57. Blood pressure 135/64, respirations 16, oxygen saturation 95% on room air. GENERAL: She is awake, alert and oriented times 3. HEENT: Mucous membranes are moist. NECK: Supple. LUNGS: Bilaterally clear to auscultation. CARDIOVASCULAR: S1 and S2 present. ABDOMEN: Soft. NEUROLOGIC: Intact. EXTREMITIES: No edema. LABS: Sodium 142, potassium 3.5, chloride 109, CO2 22. BUN 19, creatinine 0.78. Glucose 86. White blood cells 5.0, hemoglobin 10.7, hematocrit 32.3, platelets 173. PT 13.4, PTT 27.8, INR 0.94, CK 172. IMPRESSION 1. Chest pain. 2. Gastroesophageal reflux disease. 3. Osteoarthritis. 4. Obesity. 5. Sinus bradycardia. ASSESSMENT AND PLAN 1. She is pending echo to assess the LV and the valve function. 2. Troponin times 3 was negative. 3. She needs an outpatient cardiac stress test. 4. Heart rate is 57. She is asymptomatic. 5. Potassium 3.5. K replaced. 6. Further cardiac workup pending clinical course. Thank you for this consultation. Dictated by Beba Harry NP. Job#: [id number]
[2018-06-22] MEDS ORDERED: NORVASC10 MG PO (18:47)
[2018-06-22] MEDS ORDERED: PANTOPRAZOLE SO40 MG PO (18:47)
--- NOTE | 2018-06-22 23:50 | Discharge Summary ---
ADMISSION DIAGNOSES 1. Chest pain, ruled out acute coronary syndrome. 2. Osteoarthritis. 3. Anemia. 4. Urinary tract infection. 5. Bradycardia. 6. Obesity. DISCHARGE DIAGNOSES 1. Chest pain, ruled out acute coronary syndrome. 2. Osteoarthritis. 3. Anemia. 4. Urinary tract infection. 5. Bradycardia. 6. Obesity. 7. Ruled out gastrointestinal bleed. 8. Ruled out urinary tract infection. HISTORY: Patient has a history of osteoarthritis and GERD. SURGICAL HISTORY: Cholecystectomy, bilateral knee surgery, back surgery. FAMILY HISTORY: Patient's dad, mom, and sister has cancer. SOCIAL HISTORY: Patient denies tobacco, alcohol, and illicit drug use. HOSPITAL COURSE: A 68-year-old female complains of sharp intermittent chest pain that began yesterday while sitting on the couch. The pain was in the central chest and radiated under heart right breast and to the back. She denies dizziness, shortness of breath, diaphoresis. The episodes lasted 5 minutes each. Nothing worsened or improved the pain. On admission, patient had an EKG, which was normal sinus rhythm. Chest x-ray, which was negative. Troponins were negative x3. Echo showed an EF of 50%-55%. Cardiology was consulted, who set the patient for stress test. Patient started on Rocephin because the UA was positive for bacteria, leukocytes, WBC, blood, but the urine culture came back negative. Patient will discharge home on home medicines plus Norvasc for blood pressure and Protonix for GERD. Patient will follow up in 1 week with cardiology for a stress test, in 1-2 weeks with primary care. Patient understands discharge instructions and agrees to plan. Dictated by: Alma Sousa NP SAMI WASHINGTON MD Job#: [id number] CQ
[2018-06-23] MEDS ORDERED: COLLAGENASE OINTMENT 30 GM TUBE TP SCH (09:00)
== END 2018-06-22 19:17 | disposition home or self-care (01) ==
LOC: ER 13:48 → ERHOLD 15:45 → IMCU 15:56
PROVIDERS: ADMIT Internal Medicine; ATTEND Internal Medicine
DX: R07.2 Precordial pain (principal); D64.9 Anemia, unspecified; E66.9 Obesity, unspecified; R00.1 Bradycardia, unspecified; M19.90 Unspecified osteoarthritis, unspecified site; K21.9 Gastro-esophageal reflux disease without esophagitis; Z68.37 Body mass index [BMI] 37.0-37.9, adult; Z80.9 Family history of malignant neoplasm, unspecified
CPT/HCPCS: 36415 ×2; 71045; 80048; 80053; 80061; 81001; 82270; 82550 ×2; 82553 ×2; 83735; 83880; 84484 ×2; 85025 ×2; 85610; 85730; 87086; 93005; 93306; 99284; G0378 ×2; J0696; J7512